=== PATIENT | male | born 2000 | race Two or more races ===

== ENCOUNTER 2024-05-12 13:55 | Emergency (ER) | payer MEDICAID ==
[~2024-05-12] VITALS: Ht 172.7 cm; Wt 84.4 kg
[~2024-05-12 13:55] MED LIST: IBUP-1953 PO
[2024-05-12 14:03] VITALS: BP 122/65; TEMP 98.3
[2024-05-12] MEDS ORDERED: KETOROLAC TROMETHAMINE 15 MG/ML VIAL ONE (14:44)
[2024-05-12] MEDS: KETOROLAC TROMETHAMINE 15 MG/ML VIAL IM ONE (14:48)
[2024-05-12 15:04] VITALS: O2SAT 98
== END 2024-05-12 15:04 | disposition home or self-care (01) ==
LOC: ER 14:01
DX: M25.562 Pain in left knee (principal); Z79.1 Long term (current) use of non-steroidal anti-inflammatories (NSAID)
CPT/HCPCS: 99283; 96372; J1885